=== PATIENT | male | born 1965 | race Caucasian/White ===

== ENCOUNTER 2018-05-19 00:57 | Emergency (ER) | payer OTHER, SELFPAY ==
[~2018-05-19] VITALS: Ht 182.9 cm; Wt 113.6 kg
[~2018-05-19 00:57] MED LIST: ADV250INH INH; ALBU17IN INH; BAYE325T12 PO; MUCI600T34 PO; OSEL75CA PO; PERC5TAB PO; PRED10TA2 PO; TYLE325T5 PO; colace PO
--- NOTE | 2018-05-19 05:54 | REPVR ---
EXAM: CT Neck Without Contrast EXAM DATE/TIME: 05/19/2018 4:58 AM CLINICAL HISTORY: 53 years old, male; Signs and symptoms; Other: Foreign body; Additional info: Fb eval TECHNIQUE: Imaging protocol: Axial computed tomography images of the neck without contrast. Coronal and sagittal reformatted images were created and reviewed. Radiation optimization: All CT scans at this facility use at least one of these dose optimization techniques: automated exposure control; mA and/or kV adjustment per patient size (includes targeted exams where dose is matched to clinical indication); or iterative reconstruction. COMPARISON: CR Soft Tissue Neck 05/19/2018 1:39 AM FINDINGS: Nasopharynx: Normal. Oropharynx: Normal. No significant tonsillar enlargement. Hypopharynx: Normal. Larynx: The epiglottis is normal. Retropharyngeal space: Normal. Submandibular/Parotid glands: Normal. Glands are normal in size. Thyroid: Normal. No enlarged or calcified nodules. Lymph nodes: Normal. No lymphadenopathy. Trachea: Visualized trachea is unremarkable. Lungs: Normal as visualized. Vasculature: No acute findings. Bones/joints: Normal. No acute fracture. Soft tissues: No radiopaque foreign bodies are identified. IMPRESSION: Negative CT soft tissue neck. No radiopaque foreign body is identified. Electronically signed by: Cabrera Blevins On 05/19/2018 05:53:40 AM
[2018-05-19 06:18] VITALS: BP 120/76
--- NOTE | 2018-05-19 08:41 | REP ---
Soft-tissue neck x-ray: Three views. History: Foreign body sensation. Comparison is made with cervical spine radiographs from March 22, 2013. Findings: A normal epiglottis is seen. There is no opaque foreign body. Retropharyngeal soft tissues are not widened. Glottic and subglottic airway appear intact. There are minimal degenerative changes in the cervical spine Impression: Negative soft-tissue neck radiographs. Electronically Signed by J Luis Abarca MD 05/19/2018 08:33 A
== END 2018-05-19 06:19 | disposition home or self-care (01) ==
LOC: M ED 00:57
DX: T18.8XXA Foreign body in other parts of alimentary tract, initial encounter (principal); S10.11XA Abrasion of throat, initial encounter; X58.XXXA Exposure to other specified factors, initial encounter; Y92.9 Unspecified place or not applicable; Y93.89 Activity, other specified; Y99.9 Unspecified external cause status; Z79.82 Long term (current) use of aspirin; Z79.899 Other long term (current) drug therapy

== ENCOUNTER → 2019-12-09 | Outpatient (CLI) | payer OTHER ==
[~2019-12-09] MED LIST changes: +METF500T13 PO; +PROV108A INH; +SYMB16INH INH
== END ==
LOC: M LABSMTC 11:02
PROVIDERS: ATTEND Anesthesiology
DX: Z01.812 Encounter for preprocedural laboratory examination (principal); Z20.828 Contact with and (suspected) exposure to other viral communicable diseases
CPT/HCPCS: C9803; U0003

== ENCOUNTER 2019-12-14 06:47 | Day surgery (SDC) | payer OTHER ==
[~2019-12-14] VITALS: Ht 182.9 cm; Wt 99.8 kg
[2019-12-14] MEDS ORDERED: NS 1,000 ML IV ONE (07:00)
[2019-12-14] MEDS ORDERED: propofoL 500 MG/50 ML VIAL As Ordered ONE (08:10)
[2019-12-14] MEDS ORDERED: LIDOCAINE 2% 100MG/5ML SDV (FOR ANES.) As Ordered ONE (08:10)
--- NOTE | 2019-12-14 08:44 | ROOR ---
Patient Name: Brian Manning Procedure Date: 12/14/2019 8:07 AM Date of : 1965 Age: 54 Room: [facility] Gender: Male Note Status: Finalized Procedure: Total Colonoscopy to Cecum + Cold + Hot Snare Polypectomy + Hemoclips Indications: Screening in patient at increased risk: Colorectal cancer in father before age 60 Providers: Fred Terry MD Referring MD: [facility], Admin. Requesting Provider: Medicines: Monitored Anesthesia Care Complications: No immediate complications. Procedure: Pre-Anesthesia Assessment: - The heart rate, respiratory rate, oxygen saturations, blood pressure, adequacy of pulmonary ventilation, and response to care were monitored throughout the procedure. The Colonoscope was introduced through the anus and advanced to the cecum, identified by appendiceal orifice and ileocecal valve. The colonoscopy was performed without difficulty. The patient tolerated the procedure well. The quality of the bowel preparation was excellent. Findings: The perianal and digital rectal examinations were normal. Non-bleeding internal hemorrhoids were found during retroflexion. The hemorrhoids were small and Grade I (internal hemorrhoids that do not prolapse). Multiple small and large-mouthed diverticula were found in the recto-sigmoid colon, sigmoid colon and descending colon. A small polyp was found at 45 cm proximal to the anus. The polyp was sessile. The polyp was removed with a hot snare. Resection and retrieval were complete. A small polyp was found in the ascending colon. The polyp was sessile. The polyp was removed with a cold snare. Resection and retrieval were complete. A medium polyp was found at 55 cm proximal to the anus. The polyp was sessile. The polyp was removed with a hot snare. Resection and retrieval were complete. A medium polyp was found at 50 cm proximal to the anus. The polyp was sessile. The polyp was removed with a hot snare. Resection and retrieval were complete. A medium polyp was found at 30 cm proximal to the anus. The polyp was sessile. The polyp was removed with a hot snare. Resection and retrieval were complete. To prevent bleeding after the polypectomy, one hemostatic clip was successfully placed (MR conditional). There was no bleeding at the end of the procedure. The exam was otherwise without abnormality on direct and retroflexion views. Impression: - Non-bleeding internal hemorrhoids. - Diverticulosis in the recto-sigmoid colon, in the sigmoid colon and in the descending colon. - One small polyp at 45 cm proximal to the anus, removed with a hot snare. Resected and retrieved. - One small polyp in the ascending colon, removed with a cold snare. Resected and retrieved. - One medium polyp at 55 cm proximal to the anus, removed with a hot snare. Resected and retrieved. - One medium polyp at 50 cm proximal to the anus, removed with a hot snare. Resected and retrieved. - One medium polyp at 30 cm proximal to the anus, removed with a hot snare. Resected and retrieved. Clip (MR conditional) was placed. - The examination was otherwise normal on direct and retroflexion views. - The exam was otherwise normal to the cecum. Recommendation: - Patient has a contact number available for emergencies. The signs and symptoms of potential delayed complications were discussed with the patient. Return to normal activities tomorrow. Written discharge instructions were provided to the patient. - High fiber diet. - Discharge patient to home. - Continue present medications. - Await pathology results. - Telephone GI clinic for pathology results in 1 week. - Repeat colonoscopy in 3 years for surveillance based on pathology results. - Return to referring physician. - The findings and recommendations were discussed with the patient. Fred Terry MD Fred Terry MD 12/14/2019 8:43:50 AM Electronically signed by Fred Terry MD Number of Addenda: 0 Note Initiated On: 12/14/2019 8:07 AM Estimated Blood Loss: Estimated blood loss: none.
[2019-12-14 09:20] VITALS: BP 149/79
== END 2019-12-14 14:39 | disposition home or self-care (01) ==
LOC: M OPP 06:47
PROVIDERS: ATTEND Internal Medicine Gastroenterology
DX: Z12.11 Encounter for screening for malignant neoplasm of colon (principal); Z80.0 Family history of malignant neoplasm of digestive organs; K64.0 First degree hemorrhoids; K57.90 Diverticulosis of intestine, part unspecified, without perforation or abscess without bleeding; D12.5 Benign neoplasm of sigmoid colon; D12.2 Benign neoplasm of ascending colon; K64.8 Other hemorrhoids

== ENCOUNTER 2020-04-26 18:45 | Emergency (ER) | payer OTHER ==
[~2020-04-26] VITALS: Ht 182.9 cm; Wt 110.1 kg
--- NOTE | 2020-04-26 20:56 | REPVR ---
PROCEDURE INFORMATION: Exam: XR Nose to Rectum For Foreign Body, 1 View Exam date and time: 04/26/2020 8:06 PM Age: 55 years old Clinical indication: Symptoms: Swallowed pizza, got stuck, coughed up blood TECHNIQUE: Imaging protocol: XR of the nose to rectum for foreign body, 1 view. COMPARISON: No relevant prior studies available. FINDINGS: Lungs: No radiopaque foreign body or lung consolidation. The inferolateral aspects of the lungs were not fully imaged. Gastrointestinal tract: No radiopaque foreign body. No dilated loops of bowel are noted. There is a mild amount of formed stool in the colon. Vasculature: There are atherosclerotic calcifications. Other findings: No radiopaque foreign body is seen in the neck, chest, abdomen, or pelvis. IMPRESSION: No radiopaque foreign body in the neck, chest, abdomen, or pelvis. Electronically signed by: Nate Green On 04/26/2020 20:56:35 PM
[2020-04-26 21:13] VITALS: BP 129/85
== END 2020-04-26 21:15 | disposition home or self-care (01) ==
LOC: M ED 18:45
DX: R04.2 Hemoptysis (principal); R09.89 Other specified symptoms and signs involving the circulatory and respiratory systems; E11.9 Type 2 diabetes mellitus without complications; I10 Essential (primary) hypertension; Z79.84 Long term (current) use of oral hypoglycemic drugs

== ENCOUNTER → 2021-04-09 | Outpatient (CLI) | payer OTHER | LOC: M RAD 12:59 | PROVIDERS: ATTEND Nurse Practitioner Primary Care | DX: Z12.2 Encounter for screening for malignant neoplasm of respiratory organs (principal); Z87.891 Personal history of nicotine dependence; R91.8 Other nonspecific abnormal finding of lung field ==

== ENCOUNTER → 2021-07-10 | Outpatient (CLI) | payer OTHER ==
[2021-07-10 14:38] LABS: BLOOD UREA NITROGEN 18 MG/DL (7-18); CREATININE FOR GFR 0.94 MG/DL (0.70-1.30); GLOMERULAR FILTRATION RATE > 60.0 (>56)
== END ==
LOC: M LAB 13:29
PROVIDERS: ATTEND Internal Medicine Pulmonary Disease
DX: J44.9 Chronic obstructive pulmonary disease, unspecified (principal); R91.8 Other nonspecific abnormal finding of lung field

== ENCOUNTER → 2021-07-16 | Outpatient (CLI) | payer OTHER ==
[~2021-07-16] MED LIST changes: +ISOVUE-370 76% 100ML VIAL As Ordered ONE
== END ==
LOC: M RAD 08:41
PROVIDERS: ATTEND Internal Medicine Pulmonary Disease
DX: R91.8 Other nonspecific abnormal finding of lung field (principal); K76.0 Fatty (change of) liver, not elsewhere classified; K80.20 Calculus of gallbladder without cholecystitis without obstruction; K86.89 Other specified diseases of pancreas; J98.4 Other disorders of lung; I25.10 Atherosclerotic heart disease of native coronary artery without angina pectoris
CPT/HCPCS: 71260; Q9967